=== PATIENT | female | born 1935 | race Caucasian/White ===

== ENCOUNTER → 2018-05-03 | Outpatient (CLI) | payer MEDICARE ==
[~2018-05-03] MED LIST: AMLO5TAB2 PO; ASP81TEC PO; CHLO50TA2 PO; FLC150T PO; FOSI20TA3 PO; HCTZ12.5T PO; LEVO500T2 PO; METO100T5 PO; SIMV40TA4 PO; ZLP10T PO
--- NOTE | 2018-05-03 12:53 | Diagnostic Imaging Report ---
EXAMINATION: PA and lateral chest at 11:52 a.m. INDICATION: Hypoxia. FINDINGS: The heart size is stable when compared to 10/30/2017. The coarse perihilar markings seen on the prior study are again evident and not significantly changed. Consequently, I suspect these findings are chronic in nature. However, in the interval since the prior study, a small area of slightly increased density has developed in the right perihilar region. This finding is suspicious for mild pneumonia/atelectasis. The lungs are otherwise unchanged when compared to the prior exam. There is no pleural effusion identified. The mediastinum is not widened. The osseous structures are intact. IMPRESSION: 1. The small area of increased density in the right upper lobe is suspicious for mild acute pneumonia/atelectasis superimposed on the underlying chronic pulmonary changes in this region. If further evaluation is desired, then CT of the chest would be recommended. 2. The overall appearance of the chest is otherwise stable. Dictated by: Dictated on workstation # [id number]
== END ==
LOC: RAD 11:19
PROVIDERS: ATTEND Internal Medicine
DX: R09.02 Hypoxemia (principal); R05 Cough
CPT/HCPCS: 71046

== ENCOUNTER → 2018-05-17 | Outpatient (CLI) | payer MEDICARE ==
--- NOTE | 2018-05-17 11:25 | Diagnostic Imaging Report ---
Indication: Pneumonia. PA and lateral views of the chest are obtained with comparison made to study of 05/03/2018. Similar to the previous study, there are increased densities in the parahilar regions bilaterally, greater on the right. There is no evidence of pneumothorax or significant pleural fluid. There is no evidence of new abnormality or adverse change. Impression: Parahilar densities, greater on the right. This may reflect background chronic infiltrate or scarring with superimposed right upper lobe pneumonia. Additionally radiographic followup would be useful to document ongoing stability or resolution. Dictated by: Dictated on workstation # [id number]
== END ==
LOC: RAD 11:10
PROVIDERS: ATTEND Internal Medicine
DX: J18.9 Pneumonia, unspecified organism (principal); J98.4 Other disorders of lung
CPT/HCPCS: 71046

== ENCOUNTER → 2018-05-21 | Outpatient (CLI) | payer MEDICARE ==
[~2018-05-21] MED LIST changes: +CATHETER FLUSH 10 ML SYR IV PRN; +IOHEXOL 350 MG/ML 100 ML (OMNIPAQUE 350) VIAL IV ONE; +NS 250 ML (IVPB) BAG IV ONE; +RECEIVED CONTRAST (Hold Metformin) IV SCH
[2018-05-21 11:47] LABS: BUN/CREATININE RATIO 14; CREATININE SERUM 0.72 MG/DL (0.60-1.30); GFR ESTIMATED > 60
--- NOTE | 2018-05-21 12:40 | Diagnostic Imaging Report ---
PROCEDURE: CT chest with contrast only. TECHNIQUE: Multiple contiguous axial images were obtained through the chest after administration of intravenous contrast. INDICATION: Abnormal chest x-ray. Correlation is made with prior chest radiograph from 05/17/2018. No axillary lymphadenopathy is seen. There is a mildly prominent lymph node in the right paratracheal location measure 1.6 cm. No definite hilar lymphadenopathy is identified. Heart appears to be enlarged. No pericardial or pleural fluid is detected. Central airways are patent. There are some interstitial changes identified in the right upper lobe and to a lesser degree the right lower lobe, acuity indeterminate. Minimal groundglass opacities in right upper and right lower lobes also seen. Left lung is clear. Upper abdomen is unremarkable apart from a small cortical cyst of the right kidney. IMPRESSION: Cardiomegaly and interstitial changes in the right upper and right lower lobe, as described with some mild groundglass infiltrates. This may be chronic. Minimal superimposed pneumonia cannot be entirely excluded. Left lung is clear. There is slightly prominent lymph node in the right paratracheal region which may be reactive. Dictated by: Dictated on workstation # [id number]
== END ==
LOC: RAD 11:16
PROVIDERS: ATTEND Internal Medicine
DX: I51.7 Cardiomegaly (principal); J18.9 Pneumonia, unspecified organism; R91.8 Other nonspecific abnormal finding of lung field
CPT/HCPCS: 36415; 71260; 82565; 84520

== ENCOUNTER 2019-01-10 13:14 | Emergency (ER) | payer MEDICARE ==
[~2019-01-10] VITALS: Ht 157.5 cm; Wt 88.8 kg
[~2019-01-10 13:14] MED LIST changes: -CATHETER FLUSH 10 ML SYR IV PRN; -IOHEXOL 350 MG/ML 100 ML (OMNIPAQUE 350) VIAL IV ONE; -NS 250 ML (IVPB) BAG IV ONE; -RECEIVED CONTRAST (Hold Metformin) IV SCH
--- OUTSIDE RECORDS SUMMARY | 2019-01-10 13:20 | XMS REPORT | Continuity of Care Document ---
Author Organization Unknown Address Unknown Phone Unavailable Allergies Active Description Code Type Severity Reaction Onset Reported/Identified Relationship to Patient Clinical Status Yes TAPE TAPE Unknown N/A 10/19/2010 Medications There is no data. 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 10/13/2016 Ot 753.10 CYSTIC KIDNEY DISEASE, UNSPECIFIED 10/13/2016 Ot 789.01 ABDOMINAL PAIN, RIGHT UPPER QUADRANT 10/13/2016 Ot V58.66 LONG-TERM (CURRENT) USE OF ASPIRIN 10/13/2016 Ot V58.69 OTH MED,LT,CURRENT USE 11/16/2017 SERGEY JACKSON MD Ot J98.4 OTHER DISORDERS OF LUNG 11/16/2017 SERGEY JACKSON MD Ot Z87.891 PERSONAL HISTORY OF NICOTINE DEPENDENCE 05/04/2018 Ot R05 COUGH 05/04/2018 Ot R09.02 HYPOXEMIA 05/18/2018 SERGEY JACKSON MD Ot J18.9 PNEUMONIA, UNSPECIFIED ORGANISM 05/18/2018 SERGEY JACKSON MD Ot J98.4 OTHER DISORDERS OF LUNG 05/24/2018 SERGEY JACKSON MD Ot I51.7 CARDIOMEGALY 05/24/2018 SERGEY JACKSON MD Ot J18.9 PNEUMONIA, UNSPECIFIED ORGANISM 05/24/2018 SERGEY JACKSON MD Ot R91.8 OTHER NONSPECIFIC ABNORMAL FINDING OF LIDIA 05/27/2018 Ot R05 COUGH 05/27/2018 Ot R09.02 HYPOXEMIA 06/12/2018 SERGEY JACKSON MD Ot J18.9 PNEUMONIA, UNSPECIFIED ORGANISM 06/12/2018 SERGEY JACKSON MD Ot J98.4 OTHER DISORDERS OF LUNG 06/12/2018 SERGEY JACKSON MD Ot I51.7 CARDIOMEGALY 06/12/2018 SERGEY JACKSON MD Ot J18.9 PNEUMONIA, UNSPECIFIED ORGANISM 06/12/2018 SERGEY JACKSON MD Ot R91.8 OTHER NONSPECIFIC ABNORMAL FINDING OF LIDIA Procedures There is no data. Results Test Result Range [id number] - 05/21/18 11:27 Serum or plasma urea nitrogen measurement (mass/volume) 10 mg/dL 7-18 Serum or plasma creatinine measurement (mass/volume) 0.72 mg/dL 0.60-1.30 Serum or plasma urea nitrogen/creatinine mass ratio 14 NRG Serum or plasma creatinine measurement with calculation of estimated glomerular filtration rate > NRG Encounters ACCT No. Visit Date/Time Discharge Status Pt. Type Provider Facility Loc./Unit Complaint [id number] 12/29/2018 09:26:00 12/29/2018 23:59:59 CLS Preadmit SERGEY JACKSON MD [facility] RAD F/U ABN CT CHEST [id number] 05/21/2018 11:16:00 05/21/2018 23:59:59 CLS Outpatient SERGEY JACKSON MD [facility] RAD ABNORMAL CHEST XRAY [id number] 05/17/2018 11:10:00 05/17/2018 23:59:59 CLS Outpatient SERGEY JACKSON MD [facility] RAD F/U PNEMONIA [id number] 10/30/2017 09:52:00 10/30/2017 23:59:59 CLS Outpatient SERGEY JACKSON MD [facility] RAD SEE ORDER [id number] 04/19/2014 10:48:00 04/19/2014 23:59:59 CLS Outpatient SERGEY JACKSON MD [facility] RAD [id number] 05/03/2018 11:19:00 Document Registration [id number] 10/19/2010 09:22:00 Document Registration
--- NOTE | 2019-01-10 13:44 | ED Trauma-Multisystem ---
General Chief Complaint: Trauma-Non Activation Stated Complaint: FALL Nursing Triage Note: PT STATES LAST THURSDAY NIGHT SHE TRIPPED OVER HER O2 HOSE AND FELL, BRUISING TO FACE, ARMS, KNEES, AND LT GREAT TOE. DENIES LOC. PT AMBULATED TO RM 6 FROM WAITING RM ON HER OWN POWER. History of Present Illness Date Seen by Provider: Jan 10, 2019 Time Seen by Provider: 13:25 Initial Comments 83-year-old female presents for fall which occurred on the evening of 01/06/19. She states she was getting up and tripped on her oxygen cord she sustained an injury to her nose, forehead, left great toe, neck and both knees. She denies loss of consciousness. She's been able to continue doing her ADLs but has had persistent pain. She takes ibuprofen 400 mg at bedtime otherwise has not required any analgesics. She denies any recent falls. She is not on blood thinners. She denies any altered mental status or vision changes. A family friend is present with her and concurs with this. Occurred: Last Week Severity: Mild Pain/Injury Location: Face, Head, Lower Extremity (bilat knees and left great toe) Method of Injury: Fall Loss of Consciousness: No Loss of Consciousness Associated Symptoms (Fall): Shortness of Air (chronic), Trouble Walking (sec ondary to pain) Allergies and Home Medications Allergies Uncoded Allergies: TAPE (Allergy, 10/19/10) Home Medications Amlodipine Besylate 5 Mg Tablet, 10 MG PO DAILY, (Reported) Chlorthalidone 50 Mg Tablet, 25 MG PO DAILY, (Reported) Fluconazole 150 Mg Tablet, 1 EACH PO DAILY, (Reported) Fosinopril Sodium 20 Mg Tablet, 20 MG PO DAILY, (Reported) Hydrochlorothiazide 12.5 Mg Cap, 12.5 MG PO DAILY, (Reported) Levofloxacin 500 Mg Tab, 500 MG PO X1 IN A.M., (Reported) Metoprolol Succinate 100 Mg Tab.sr.24h, 100 MG PO DAILY, (Reported) Simvastatin 40 Mg Tablet, 40 MG PO DAILY, (Reported) Zolpidem Tartrate 10 Mg Tab, 10 MG PO HS, (Reported) Patient Home Medication List Home Medication List Reviewed: Yes Review of Systems Review of Systems Constitutional: no symptoms reported, see HPI Nose: See HPI, Pain Musculoskeletal: joint pain (bilat knees and left great toe) All Other Systems Reviewed Negative Unless Noted: Yes Past Tcyygad-Zoztij-Oasvhr Hx Past Med/Social Hx: Reviewed Nursing Past Med/Soc Hx Patient Social History Alcohol Use: Denies Use Recreational Drug Use: No Smoking Status: Former Smoker Type Used: Cigarettes Former Smoker, Quit: Dec 13, 1985 Recent Foreign Travel: No Contact w/Someone Who Travel: No Recent Infectious Disease Expo: No Recent Hopitalizations: No Physical Abuse: No Sexual Abuse: No Mistreated: No Fear: No Seasonal Allergies Seasonal Allergies: Yes Past Medical History Surgeries: Yes Gallbladder Respiratory: Yes COPD Cardiac: Yes Hypertension Neurological: No Reproductive Disorders: No Genitourinary: No Gastrointestinal: No Musculoskeletal: Yes Arthritis, Chronic Back Pain Endocrine: No HEENT: No Cancer: No Psychosocial: No Integumentary: No Blood Disorders: No Physical Exam Vital Signs Vital Signs - First Documented 01/10/19 13:22 Temp 99.4 Pulse 67 Resp 22 B/P (MAP) 163/64 (97) Pulse Ox 94 O2 Delivery Nasal Cannula Height, Weight, BMI Height: 5'2.00" Weight: 195lbs. 12.8oz. 88.962742bl; BMI Method:Estimated General Appearance: No Apparent Distress, WD/WN Head: Contusions, Ecchymosis (nose, bilat ant. knees, left great toe, right scapula); No Active Bleeding, No Lacerations, No Raccoon Eyes Eyes: Bilateral Eye Normal Inspection, Bilateral Eye PERRL, Bilateral Eye EOMI, Bilateral Eye Other (no rika-orbital bone tenderness or crepitus ) Ears, Nose, Throat: Hearing Grossly Normal, No Evidence of ENT Injury, No Dental Injury; No Hemotympanum, No Midface Instability, No Dental Injury; Other (ecchymosis and superficial abrasion to the base of nose and forehead) Neck: Full Range of Motion, Normal Inspection, Non Tender, Supple Cardiovascular: Regular Rate, Rhythm, No Edema, No JVD, No Murmur, Normal Peripheral Pulses Respiratory: Chest Non Tender, Lungs Clear, Other (wears portable oxygen, becomes short of air with minimal exertion but this is baselien for patient. ) Gastrointestinal: Normal Bowel Sounds, Non Tender, Soft Back: Normal Inspection, No CVA Tenderness, No Vertebral Tenderness; No Decreased Range of Motion, No Muscle Spasm Extremity: Normal Capillary Refill, Normal Inspection, Normal Range of Motion Neurologic/Psychiatric: Alert, Oriented x3, No Motor/Sensory Deficits, Normal Mood/Affect Skin: Normal Color, Warm/Dry, Ecchymosis (to anterior knees, nose and left great toe. Very faint area to right scapula) Byron Coma Score Best Eye Response (Elbert): (4) Open Spontaneously Best Verbal Response (Elbert): (5) Oriented Best Motor Response (Elbert): (6) Obeys Commands Elbert Total: 15 Progress/Results/Core Measures Results/Orders My Orders Orders - BARRINGTON AVENDANO Ct Head/Face/Cervical Wo (01/10/19 13:35) Foot, Left, 3 Views (01/10/19 13:35) Toe(S) (01/10/19 13:35) Knee, 3 Views, Bilateral (01/10/19 13:35) Dipht,Pertuss(Acell),Tet Adult (Boostrix (01/10/19 14:00) Medications Given in ED Current Medications Medications Dose Ordered Sig/Mireille Route Start Time Stop Time Status Last Admin Dose Admin Diphtheria/ Tetanus/Acell Pertussis 0.5 ml ONCE ONCE IM 01/10/19 14:00 01/10/19 14:01 DC 01/10/19 14:38 0.5 ML Vital Signs/I&O 01/10/19 13:22 Temp 99.4 Pulse 67 Resp 22 B/P (MAP) 163/64 (97) Pulse Ox 94 O2 Delivery Nasal Cannula Blood Pressure Mean: 97 Progress Progress Note : Time: 13:25 Progress Note Patient seen and evaluated. Although her neurological findings are grossly intact recommended a CT of her head and facial bones and neck. We'll also obtain an x-ray of the knees, left foot and left great toe. We'll give a tetanus vaccine. She declined the need for Tylenol or ibuprofen. No other complaints to address at this time. Her family friend did report that Dr. Jackson had plans for her to get a repeat CT Chest from previous findings. She denies any respiratory issues as this time. She will follow up with Dr. Jackson for this study. 1500 reviewed x-rays and CTs with the patient and family friend. No acute findings. Discharge instructions and return precautions reviewed. All questions answered. Diagnostic Imaging Diagonstic Imaging: CT Plain Films/CT/US/NM/MRI: facial bones, c-spine, head Comments NAME: RISSA LUNDY [facility] REC#: [id number] PT STATUS: REG ER : 1935 PHYSICIAN: BARRINGTON AVENDANO ADMIT DATE: 01/10/19/ER Draft Date of Exam:01/10/19 CT HEAD/FACE/CERVICAL WO PROCEDURE: CT head, face, and cervical spine without contrast. TECHNIQUE: Multiple contiguous axial images were obtained through the head, neck, and facial bones without the use of intravenous contrast. Sagittal and coronal reformations through the cervical spine and facial bones were also performed. Auto Exposure Controls were utilized during the CT exam to meet ALARA standards for radiation dose reduction. INDICATION: Fall with facial bruising. No prior studies are available for comparison. CT head: The ventricles and sulci are appropriate for the patient's age. No sulcal effacement, midline shift or hemorrhage is detected. Cisterns are patent. Visualized paranasal sinuses are clear. IMPRESSION: No acute intracranial process is detected. CT cervical spine: There is approximately 5 mm of anterolisthesis of C4 on C5. There is significant degenerative disc disease and facet disease at the C4-5, C5-6 and C6-7 levels. No definite perched or evidence of locked or dislocated facets is identified. Anterolisthesis may be chronic and on a degenerative basis. No fractures are identified. Odontoid is intact. Prevertebral tissues are within normal limits IMPRESSION: Significant cervical degenerative disc and facet disease with 5 mm of anterolisthesis of C4 on C5. This may be chronic, as there is significant facet disease at this level. No fractures are identified. CT face: The mandible appears intact. Zygomatic arches are intact. The maxillary sinus clement and orbital clement are intact. No nasal bone fracture seen. The nasal septum is deviated to the right. IMPRESSION: No facial bone fracture is detected. Dictated on workstation # [id number] Dict: 01/10/19 1417 Trans: 01/10/19 1427 CV [id number] Interpreted by: MINDA CASTILLO MD Electronically signed by: Reviewed: Reviewed by Me Diagonstic Imaging: Xray Plain Films/CT/US/NM/MRI: other (left foot) Comments NAME: RISSA LUNDY [facility] REC#: [id number] PT STATUS: REG ER : 1935 PHYSICIAN: BARRINGTON AVENDANO ADMIT DATE: 01/10/19/ER Draft Date of Exam:01/10/19 FOOT, LEFT, 3 VIEWS INDICATION: Fall with left foot pain. TIME OF EXAM: 2:18 p.m. FINDINGS: Three views of the left foot were obtained. There is lateral subluxation of the proximal phalanx in relation to the distal first metatarsal. This is likely chronic. There are severe degenerative changes at the first MTP joint. There appear to be significant degenerative changes at multiple tarsometatarsal joints as well. There is a small plantar calcaneal spur. No definite fracture is identified. Generalized demineralization is noted. IMPRESSION: Chronic changes, as described. No acute bony abnormality is detected. Dictated on workstation # [id number] Dict: 01/10/19 1446 Trans: 01/10/19 1450 [id number] Interpreted by: MINDA CASTILLO MD Electronically signed by: Reviewed: Reviewed by Hi Diagonstic Imaging: Xray Plain Films/CT/US/NM/MRI: knee Comments NAME: RISSA LUNDY [facility] REC#: [id number] PT STATUS: REG ER : 1935 PHYSICIAN: BARRINGTON AVENDANO ADMIT DATE: 01/10/19/ER Draft Date of Exam:01/10/19 KNEE, 3 VIEWS, BILATERAL INDICATION: Pain, tripped over tubing. COMPARISON: None available. TECHNIQUE: Six radiographs of the bilateral knees dated January 10, 2019. FINDINGS: No acute fracture or dislocation. No destructive osseous process. Mild joint space narrowing with minimal osteophytosis. No joint effusion. Mild scattered vascular calcifications. No suspicious radiopaque foreign body. IMPRESSION: No acute osseous abnormality with mild degenerative changes. Dictated on workstation # [id number] Dict: 01/10/19 1449 Trans: 01/10/19 1456 [id number] Interpreted by: EMILY STALEY MD Electronically signed by: Reviewed: Reviewed by Hi Diagonstic Imaging: Xray Plain Films/CT/US/NM/MRI: other (left great toe) Comments NAME: RISSA LUNDY [facility] REC#: [id number] PT STATUS: REG ER : 1935 PHYSICIAN: BARRINGTON AVENDANO ADMIT DATE: 01/10/19/ER Draft Date of Exam:01/10/19 TOE(S) Indication: Left great toe pain. AP, oblique, and lateral views of the left foot are obtained. There is osteopenia. There is lateral subluxation of the first proximal phalanx relative to the first metatarsal, with severe joint space narrowing. This finding is of uncertain chronicity but may be chronic. A hallux deformity is noted. There is no definite fracture or acute bony abnormality seen elsewhere. Impression: There is partial subluxation of the first MTP joint which is of uncertain chronicity. There is underlying severe degenerative change of first MTP joint as well as hallux valgus deformity. There is no definite fracture seen. Dictated on workstation # [id number] Dict: 01/10/19 1440 Trans: 01/10/19 1456 [facility] [id number] Interpreted by: KATHY HAWK MD Electronically signed by: Reviewed: Reviewed by Me Departure Impression Primary Impression: Fall Qualified Codes: W19.XXXA - Unspecified fall, initial encounter Additional Impression: Contusion Qualified Codes: S00.33XA - Contusion of nose, initial encounter Disposition: 01 HOME, SELF-CARE Condition: Improved Departure-Patient Inst. Decision time for Depature: 14:50 Referrals: SERGEY JACKSON MD (PCP/Family) Primary Care Physician Patient Instructions: Contusion (DC), Preventing Falls Add. Discharge Instructions: Ice 20 min every 2 hours to areas of bruising or pain. Activity as tolerated, watch for oxygen cord to prevent falls. You may alternate between Tylenol 650 mg and ibuprofen 600 mg every 4 hours for pain. Schedule follow-up for Dr. Jackson regarding CT of chest and if symptoms are not improving or worsen from the fall. Return to the emergency department for increased difficulty breathing, altered mental status, vision changes, dizziness or falls, or new problems. All discharge instructions reviewed with patient and/or family. Voiced understanding. Copy Copies To 1: SERGEY JACKSON MD, AMY ARNP Jan 10, 2019 13:44
[2019-01-10] MEDS ORDERED: TETANUS,DIPTH,PERTUSS P/F (BOOSTRIX) 0.5 ML VIAL IM ONE (14:00)
--- NOTE | 2019-01-10 14:28 | Diagnostic Imaging Report ---
PROCEDURE: CT head, face, and cervical spine without contrast. TECHNIQUE: Multiple contiguous axial images were obtained through the head, neck, and facial bones without the use of intravenous contrast. Sagittal and coronal reformations through the cervical spine and facial bones were also performed. Auto Exposure Controls were utilized during the CT exam to meet ALARA standards for radiation dose reduction. INDICATION: Fall with facial bruising. No prior studies are available for comparison. CT head: The ventricles and sulci are appropriate for the patient's age. No sulcal effacement, midline shift or hemorrhage is detected. Cisterns are patent. Visualized paranasal sinuses are clear. IMPRESSION: No acute intracranial process is detected. CT cervical spine: There is approximately 5 mm of anterolisthesis of C4 on C5. There is significant degenerative disc disease and facet disease at the C4-5, C5-6 and C6-7 levels. No definite perched or evidence of locked or dislocated facets is identified. Anterolisthesis may be chronic and on a degenerative basis. No fractures are identified. Odontoid is intact. Prevertebral tissues are within normal limits IMPRESSION: Significant cervical degenerative disc and facet disease with 5 mm of anterolisthesis of C4 on C5. This may be chronic, as there is significant facet disease at this level. No fractures are identified. CT face: The mandible appears intact. Zygomatic arches are intact. The maxillary sinus clement and orbital clement are intact. No nasal bone fracture seen. The nasal septum is deviated to the right. IMPRESSION: No facial bone fracture is detected. Dictated by: Dictated on workstation # [id number]
--- NOTE | 2019-01-10 14:51 | Diagnostic Imaging Report ---
INDICATION: Fall with left foot pain. TIME OF EXAM: 2:18 p.m. FINDINGS: Three views of the left foot were obtained. There is lateral subluxation of the proximal phalanx in relation to the distal first metatarsal. This is likely chronic. There are severe degenerative changes at the first MTP joint. There appear to be significant degenerative changes at multiple tarsometatarsal joints as well. There is a small plantar calcaneal spur. No definite fracture is identified. Generalized demineralization is noted. IMPRESSION: Chronic changes, as described. No acute bony abnormality is detected. Dictated by: Dictated on workstation # [id number]
--- NOTE | 2019-01-10 14:53 | Diagnostic Imaging Report ---
INDICATION: Pain, tripped over tubing. COMPARISON: None available. TECHNIQUE: Six radiographs of the bilateral knees dated January 10, 2019. FINDINGS: No acute fracture or dislocation. No destructive osseous process. Mild joint space narrowing with minimal osteophytosis. No joint effusion. Mild scattered vascular calcifications. No suspicious radiopaque foreign body. IMPRESSION: No acute osseous abnormality with mild degenerative changes. Dictated by: Dictated on workstation # [id number]
--- NOTE | 2019-01-10 14:56 | Diagnostic Imaging Report ---
Indication: Left great toe pain. AP, oblique, and lateral views of the left foot are obtained. There is osteopenia. There is lateral subluxation of the first proximal phalanx relative to the first metatarsal, with severe joint space narrowing. This finding is of uncertain chronicity but may be chronic. A hallux deformity is noted. There is no definite fracture or acute bony abnormality seen elsewhere. Impression: There is partial subluxation of the first MTP joint which is of uncertain chronicity. There is underlying severe degenerative change of first MTP joint as well as hallux valgus deformity. There is no definite fracture seen. Dictated by: Dictated on workstation # [id number]
[2019-01-10 15:15] VITALS: BP 150/65
== END 2019-01-10 15:15 | disposition home or self-care (01) ==
LOC: EDUNIT# 13:14 → ER 13:16
DX: S00.33XA Contusion of nose, initial encounter (principal); S00.83XA Contusion of other part of head, initial encounter; S80.01XA Contusion of right knee, initial encounter; S80.02XA Contusion of left knee, initial encounter; S90.112A Contusion of left great toe without damage to nail, initial encounter; S40.011A Contusion of right shoulder, initial encounter; I10 Essential (primary) hypertension; J44.9 Chronic obstructive pulmonary disease, unspecified; R40.2142 Coma scale, eyes open, spontaneous, at arrival to emergency department; R40.2252 Coma scale, best verbal response, oriented, at arrival to emergency department; R40.2362 Coma scale, best motor response, obeys commands, at arrival to emergency department; Z88.8 Allergy status to other drugs, medicaments and biological substances; Z87.891 Personal history of nicotine dependence; W18.09XA Striking against other object with subsequent fall, initial encounter
CPT/HCPCS: 70450; 70486; 72125; 73630; 73660; 90715

== ENCOUNTER → 2019-01-13 | Outpatient (CLI) | payer MEDICARE ==
[~2019-01-13] MED LIST changes: +HOLD METFORMIN - RECEIVED CONTRAST 20 ML VIAL IV SCH; +IOHEXOL 350 MG/ML 100 ML (OMNIPAQUE 350) VIAL IV ONE; +NS 100 ML (IVPB) BAG IV ONE
--- NOTE | 2019-01-13 13:52 | Diagnostic Imaging Report ---
PROCEDURE: CT chest with contrast only. TECHNIQUE: Multiple contiguous axial images were obtained through the chest after administration of intravenous contrast. Auto Exposure Controls were utilized during the CT exam to meet ALARA standards for radiation dose reduction. INDICATION: Followup previous abnormal CT chest. Patient does complain of shortness of breath on exertion. COMPARISON: Correlation is made with prior CT chest from 05/21/2018. FINDINGS: The patient has developed prominent lymph nodes in left axillary region, largest 2.7 x 1.2 cm. There is an irregular masslike density in the inferior aspect of the left breast measuring 2 cm. Breast malignancy cannot be excluded. Diagnostic mammography would be recommended. This area of the breast was not included on prior CT. A slightly prominent lymph node in mediastinum is again noted with right paratracheal node unchanged at 1.6 cm. No hilar lymphadenopathy is seen. No pericardial or pleural fluid is detected. Subpleural interstitial changes in right upper and right lower lobe appear similar to prior exam and likely fibrotic scarring. There are bronchiectatic changes in the right lower lobe.. Lesser interstitial changes in the left upper and lower lobe are noted. No parenchymal mass is seen. Upper abdomen shows left upper pole renal cyst measuring 4.7 cm in size. IMPRESSION: 1. Pulmonary interstitial changes, similar to prior exam and likely chronic. Right paratracheal lymph node previously noted is stable. 2. Irregular masslike density in the inferior left breast. The findings are concerning for breast malignancy. There are also enlarged lymph nodes in the left axilla and metastatic disease cannot be excluded. Diagnostic mammography is recommended for further evaluation. Dictated by: Dictated on workstation # [id number]
== END ==
LOC: RAD 12:31
PROVIDERS: ATTEND Internal Medicine
DX: J98.4 Other disorders of lung (principal); R06.02 Shortness of breath; R59.0 Localized enlarged lymph nodes
CPT/HCPCS: 71260

== ENCOUNTER → 2019-01-26 | Outpatient (CLI) | payer MEDICARE ==
[~2019-01-26] MED LIST changes: -HOLD METFORMIN - RECEIVED CONTRAST 20 ML VIAL IV SCH; -IOHEXOL 350 MG/ML 100 ML (OMNIPAQUE 350) VIAL IV ONE; -NS 100 ML (IVPB) BAG IV ONE
--- NOTE | 2019-01-26 18:44 | Diagnostic Imaging Report ---
INDICATION: Abnormal CT chest study demonstrating a left breast mass. COMPARISON: Correlation is made with prior mammograms from 04/19/2014 and 03/24/2012. EXAMINATION: Bilateral 2D and 3D diagnostic mammography was performed with CAD. The current study was also evaluated with a Computer Aided Detection (CAD) system. FINDINGS: Scattered fibroglandular densities are identified, bilaterally. There is a spiculated mass in the retroareolar left breast corresponding to the CT abnormality. This contains numerous suspicious microcalcifications. In addition, there is a smaller spiculated nodule in the upper outer right breast approximately 9-10 cm from the nipple. There are benign calcifications in both breasts. Right axilla is unremarkable. Left axilla does show some enlarged lymph nodes IMPRESSION: 1. Dominant spiculated mass in retroareolar left breast with malignant appearing microcalcifications correlating with CT and amount. Features are concerning for breast neoplasm. Further evaluation with ultrasound is recommended. 2. Spiculated nodular density in the upper outer right breast at posterior depth. This also is concerning for a small breast neoplasm. Directed sonographic interrogation is recommended and will be performed today as well. ACR BI-RADS Category 0: Incomplete. (Needs additional imaging evaluation). Result letter will be mailed to the patient. Note: At least 10% of breast cancer is not imaged by mammography. Dictated by: Dictated on workstation # [id number]
--- NOTE | 2019-01-26 19:09 | Diagnostic Imaging Report ---
INDICATION: Bilateral breast masses. COMPARISON: Correlation is made with a diagnostic mammogram from earlier the same day. FINDINGS: Left breast: There is a lobulated hypoechoic solid mass at the 3 o'clock retroareolar left breast corresponding to the mammographic density. Punctate echogenicities are present suggestive of microcalcifications. This mass measures 2.4 x 2.0 x 2.2 cm. Evaluation of the left axilla was also performed. There is an enlarged lymph node in the left axilla, measuring 3.8 x 1.5 x 2.2 cm. Second lymph node measures 2.9 x 1.2 x 2.2 cm. Right breast: Sonographic interrogation in the upper-outer right breast was performed. There is a rounded hypoechoic solid nodule at the 10 o'clock location of the right breast, 7 cm from the nipple, corresponding to the density noted mammographically. This measures 0.7 x 0.8 x 0.5 cm. This does show internal vascularity. IMPRESSION: Bilateral breast masses corresponding to the mammographic densities. Features are concerning for breast neoplasms. In addition, there are enlarged lymph nodes in the left axilla and metastatic disease cannot be entirely excluded. Tissue sampling is recommended. These would be amenable to ultrasound-guided biopsy. ACR BI-RADS Category 4: Suspicious abnormality. Result letter will be mailed to the patient. Note: At least 10% of breast cancer is not imaged by mammography. Dictated by: Dictated on workstation # [id number]
== END ==
LOC: RAD 13:02
PROVIDERS: ATTEND Internal Medicine
DX: N63.11 Unspecified lump in the right breast, upper outer quadrant (principal); N63.20 Unspecified lump in the left breast, unspecified quadrant; R59.0 Localized enlarged lymph nodes
CPT/HCPCS: 76642; 77066

== ENCOUNTER → 2019-02-02 | Outpatient (CLI) | payer MEDICARE ==
[~2019-02-02] VITALS: Ht 157.5 cm; Wt 80.3 kg
[~2019-02-02] MED LIST changes: +LIDOCAINE 1% INJ 20 ML 20 ML VIAL INJ ONE; +LIDOCAINE 1% INJ 20 ML 20 ML VIAL ONE
--- NOTE | 2019-02-02 19:15 | Diagnostic Imaging Report ---
INDICATION: Enlarged left axillary lymph node. Patient presents for ultrasound-guided biopsy. Patient was brought to the procedure room, placed on table in the supine position. Ultrasound imaging of the left axilla was performed to evaluate appropriate entry site. Skin and left axilla was prepped and draped in the usual sterile fashion. Small amount of 1% lidocaine was utilized for local anesthesia. Total of 3 core biopsies were made through enlarged left axillar lymph node utilizing a 14-gauge Achieve needle. A marker clip was then deployed. Hemostasis was obtained using manual compression. Patient tolerated the procedure well. IMPRESSION: Successful ultrasound guided core biopsy of enlarged left axillary lymph node. Dictated by: Dictated on workstation # [id number]
--- NOTE | 2019-02-02 19:17 | Diagnostic Imaging Report ---
INDICATION: Left breast mass. Patient presents for ultrasound-guided core biopsy. Patient was brought to the procedure room, placed on the table in supine position. Ultrasound imaging of the left breast was performed to evaluate appropriate entry site. Left breast was then prepped and draped in usual sterile fashion. Small amount of 1% lidocaine was utilized for local anesthesia. Total of 3 core biopsies were made through the lobulated hypoechoic mass in the retroareolar left breast utilizing a 14-gauge Achieve needle. A marker clip was then deployed. Needle was withdrawn and hemostasis was obtained using manual compression. Patient tolerated the procedure well. IMPRESSION: Successful ultrasound-guided core biopsy retroareolar left breast mass. Pathology results are currently pending. Dictated by: Dictated on workstation # [id number]
--- NOTE | 2019-02-02 19:24 | Diagnostic Imaging Report ---
INDICATION: Right breast mass. Patient presents for ultrasound-guided biopsy. Patient was brought to the procedure room, placed on the table in the supine position. Ultrasound imaging of the right breast was performed to evaluate appropriate entry site. Right breast was then prepped and draped in the usual sterile fashion. Small amount of 1% lidocaine was utilized for local anesthesia. A total of 3 core biopsies were obtained of the subcentimeter hypoechoic mass at the 10 o'clock location of the right breast, 7 cm from the nipple utilizing a 14-gauge Achieve needle. A marker clip was then deployed. Hemostasis was obtained using manual compression. IMPRESSION: Successful ultrasound-guided core biopsy of the subcentimeter hypoechoic mass 10 o'clock location of the right breast, 7 cm from the nipple. Pathology results are currently pending. Dictated by: Dictated on workstation # [id number]
--- NOTE | 2019-02-03 23:31 | Diagnostic Imaging Report ---
INDICATION: Patient status post bilateral breast biopsy. Bilateral 2-D, CC and mL mammography was performed after patient underwent ultrasound-guided biopsy of bilateral breast masses and left axillary lymph node biopsy. There is a marker clip identified in the upper and outer aspect of the right breast in the region of previously described irregular nodular density. Moderate increased density at this location is seen consistent with postbiopsy hematoma. Left breast also demonstrates marker clip within the mass in the retroareolar left breast. There is also a marker clip along the margin of enlarged lymph node in the left axilla. IMPRESSION: Marker clips bilateral breast and left axilla, as described. Dictated by: Dictated on workstation # [id number]
== END ==
LOC: RAD 12:17
PROVIDERS: ATTEND Nurse Practitioner
DX: N63.20 Unspecified lump in the left breast, unspecified quadrant (principal); N63.11 Unspecified lump in the right breast, upper outer quadrant; R59.0 Localized enlarged lymph nodes
CPT/HCPCS: 19083; 19084; 77066

== ENCOUNTER → 2019-02-17 | Outpatient (CLI) | payer MEDICARE ==
[~2019-02-17] MED LIST changes: +BARIUM SUSPENSION 2.1% (VANILLA SILQ) 450 ML PO ONE; +CATHETER FLUSH 10 ML SYR IV PRN; +HOLD METFORMIN - RECEIVED CONTRAST 20 ML VIAL IV SCH; +IOHEXOL 350 MG/ML 100 ML (OMNIPAQUE 350) VIAL IV ONE; -LIDOCAINE 1% INJ 20 ML 20 ML VIAL INJ ONE; -LIDOCAINE 1% INJ 20 ML 20 ML VIAL ONE; +NS 100 ML (IVPB) BAG IV ONE
--- NOTE | 2019-02-17 12:53 | Diagnostic Imaging Report ---
PROCEDURE: CT abdomen and pelvis with and without contrast. TECHNIQUE: Precontrast acquisitions were acquired through the abdomen and pelvis. Multiple contiguous axial images were obtained through the abdomen and pelvis after the administration of intravenous contrast. Auto Exposure Controls were utilized during the CT exam to meet ALARA standards for radiation dose reduction. INDICATION: Metastatic breast cancer. COMPARISON: Comparison is made to study of 10/19/2010. FINDINGS: There is an approximately 2 cm irregular mass in the left breast. There are prominent interstitial markings in the lung bases likely due to pneumonitis or scarring. There is no evidence of focal hepatic or splenic lesion. Gallbladder is surgically absent. No pancreatic or adrenal gland abnormality is seen. Bilateral renal cysts are again noted without other evidence of renal abnormality. There is no evidence of free fluid or pathologic adenopathy within the abdomen or pelvis. Partially opacified urinary bladder is unremarkable. There is moderate lumbar degenerative change with disc disease most pronounced at the L2-3 level with Grade I anterolisthesis of L5 on S1. There is moderate aortoiliac atherosclerotic calcification. IMPRESSION: 1. 2 cm left breast mass consistent with breast neoplasm. There is no evidence of acute abnormality or metastatic disease within the abdomen or pelvis. 2. Note is made of prominent interstitial markings in the lung bases which could be related to pneumonitis or scarring. Dictated by: Dictated on workstation # [id number]
--- NOTE | 2019-02-17 16:09 | Diagnostic Imaging Report ---
INDICATION: Breast carcinoma. EXAMINATION: Patient was administered 24.6 mCi technetium 99m MDP intravenously and whole-body imaging was performed after a three-hour delay. COMPARISON: No prior bone scan is available for comparison. FINDINGS: There is normal uptake of activity by the axial and appendicular skeleton. Mild uptake in the cervical and lumbar spine is seen which is likely degenerative. There is uptake by both kidneys with excretion into the urinary bladder. No abnormal foci are identified to suggest osseous metastatic disease. Vague mild uptake involving the mid shaft of the left femur is seen, indeterminate. IMPRESSION: Degenerative changes, as described. Vague uptake in the midshaft left femur is seen, indeterminate. No other suspicious abnormalities are detected. Dictated by: Dictated on workstation # [id number]
== END ==
LOC: CARD 10:54
PROVIDERS: ATTEND Internal Medicine Hematology & Oncology
DX: C50.912 Malignant neoplasm of unspecified site of left female breast (principal); C77.3 Secondary and unspecified malignant neoplasm of axilla and upper limb lymph nodes; Z90.49 Acquired absence of other specified parts of digestive tract
CPT/HCPCS: 74178; 78306

== ENCOUNTER → 2019-02-21 | Outpatient (CLI) | payer MEDICARE ==
[~2019-02-21] MED LIST changes: -BARIUM SUSPENSION 2.1% (VANILLA SILQ) 450 ML PO ONE; -CATHETER FLUSH 10 ML SYR IV PRN; -HOLD METFORMIN - RECEIVED CONTRAST 20 ML VIAL IV SCH; -IOHEXOL 350 MG/ML 100 ML (OMNIPAQUE 350) VIAL IV ONE; -NS 100 ML (IVPB) BAG IV ONE
== END ==
LOC: CARD 12:31
PROVIDERS: ATTEND Internal Medicine Hematology & Oncology
DX: I35.8 Other nonrheumatic aortic valve disorders (principal); Q21.1 Atrial septal defect; C77.3 Secondary and unspecified malignant neoplasm of axilla and upper limb lymph nodes; C50.911 Malignant neoplasm of unspecified site of right female breast; C50.912 Malignant neoplasm of unspecified site of left female breast
CPT/HCPCS: 93306

== ENCOUNTER 2019-02-22 12:55 | Outpatient (RCR) | payer MEDICARE ==
[2019-02-10 16:37] LABS: BASOPHILS % (AUTO) 1 % (0-10); EOSINOPHILS # (AUTO) 0.1 10^3/uL (0.0-0.3); EOSINOPHILS % (AUTO) 2 % (0-10); HEMATOCRIT 37 % (35-52); HEMOGLOBIN 13.1 G/DL (11.5-16.0); LYMPHOCYTES # (AUTO) 0.8 X 10^3 (1.0-4.0); LYMPHOCYTES % (AUTO) 15 % (12-44); MEAN CORPUSCULAR HEMOGLOBIN 31 PG (25-34); MEAN CORPUSCULAR HGB CONC 36 G/DL (32-36); MEAN CORPUSCULAR VOLUME 87 FL (80-99); MEAN PLATELET VOLUME 8.6 FL (7.4-10.4); MONOCYTES # (AUTO) 0.7 X 10^3 (0.0-1.0); MONOCYTES % (AUTO) 13 % (0-12); NEUTROPHILS # (AUTO) 3.9 X 10^3 (1.8-7.8); NEUTROPHILS % (AUTO) 70 % (42-75); PLATELET COUNT 313 10^3/uL (130-400); RED CELL DISTRIBUTION WIDTH 13.4 % (10.0-14.5); WHITE BLOOD COUNT 5.6 10^3/uL (4.3-11.0)
[2019-02-10 16:58] LABS: ALBUMIN 4.5 GM/DL (3.2-4.5); BILIRUBIN,TOTAL 0.6 MG/DL (0.1-1.0); CALCIUM 10.6 MG/DL (8.5-10.1); CREATININE SERUM 0.9 MG/DL (0.60-1.30); POTASSIUM 4.1 MMOL/L (3.6-5.0); TOTAL PROTEIN 7.8 GM/DL (6.4-8.2)
[~2019-02-22] VITALS: Ht 157.5 cm; Wt 78.9 kg
[2019-02-24] MEDS ORDERED: ACETAMINOPHEN 325 MG TAB (TYLENOL) CANCER CTR PO PRN (09:15)
[2019-02-24] MEDS ORDERED: NS IV 1000 ML (CANCER CTR) IV SCH (09:15)
[2019-02-24] MEDS ORDERED: diphenhydrAMINE 25 MG TAB (BENADRYL) CANCER CENTER PO SCH (09:15)
[2019-02-24] MEDS ORDERED: NS IV SCH (09:30)
[2019-02-24] MEDS ORDERED: TRASTUZUMAB IV SCH (09:30)
== END 2019-05-11 | disposition home or self-care (01) ==
LOC: ONC 12:55
PROVIDERS: ATTEND Internal Medicine Hematology & Oncology
DX: C50.919 Malignant neoplasm of unspecified site of unspecified female breast (principal); J44.9 Chronic obstructive pulmonary disease, unspecified; I10 Essential (primary) hypertension; E78.00 Pure hypercholesterolemia, unspecified; M19.91 Primary osteoarthritis, unspecified site; Z80.3 Family history of malignant neoplasm of breast; Z80.41 Family history of malignant neoplasm of ovary; Z80.0 Family history of malignant neoplasm of digestive organs; Z79.82 Long term (current) use of aspirin; Z79.899 Other long term (current) drug therapy; Z78.0 Asymptomatic menopausal state
CPT/HCPCS: 36415; 80053; 84443; 85025; 86300; 99213; 99214